=== PATIENT | female | born 1960 | race Caucasian/White ===

== ENCOUNTER → 2018-05-20 09:24 | Outpatient (CLI) | payer BC, SELFPAY ==
--- NOTE | 2018-05-20 09:33 | MRI_ITS ---
STUDY: MRI ORBITS WITH AND WITHOUT CONTRAST REASON FOR EXAM: Female, 57 years old. R eye twitching x 4 yrs TECHNIQUE: Standardized fat and water weighted pulse sequences were obtained in all 3 orthogonal planes, pre-and post contrast administration. ml of contrast material was administered intravenously for the contrast portion of the examination. COMPARISON: April 01, 2017 CT of the head FINDINGS: Normal bilateral globes. Normal bilateral optic nerve sheath complexes and optic nerves. Normal bilateral intraconal and extraconal spaces. Normal bilateral extraocular muscles. Normal optic chiasm and post-chiasmatic tracts. Normal sella turcica, pituitary gland, infundibular stalk, and hypothalamus. Normal bilateral cavernous sinuses. Normal tectal plate and pineal gland. Normal flow voids within the major intracranial circulation suggesting patency by spin echo criteria. Normal size of the ventricles and extra-axial spaces for the patient's age. There are multiple small white matter hyperintensities, distributed throughout the subcortical and deep white matter tracts of the cerebral hemispheres. There is no associated enhancement or restricted diffusion is seen to suggest active disease. Normal bilateral basal ganglia. Normal thalami. There is no extra-axial fluid accumulation. Normal midbrain, damon and medulla. Normal cerebellum. Normal basal cisterns. MRI/Brain W/WO Contrast IMPRESSION: Unremarkable orbits. Multiple white matter hyperintensities. Differential considerations are chronic microvascular, demyelination and post infectious/inflammatory disease. Electronically Signed: Hayes Pillai MD at 15:19 EST Tel , Service support ,
== END ==
DX: G51.39 Clonic hemifacial spasm, unspecified (principal)
CPT/HCPCS: 70553; A9585